=== PATIENT | male | born 1955 | race Caucasian/White ===

== ENCOUNTER 2021-07-24 16:47 | Inpatient (IN) | payer MEDICARE, OTHER ==
[~2021-07-24] VITALS: Ht 170.2 cm; Wt 79.8 kg
[2021-07-27 17:20] VITALS: BP 151/90
[2021-07-27] MEDS ORDERED: DEXTROSE 50%-WATER 25 GM/50 ML SYRINGE IVP PRN (17:30)
[2021-07-27] MEDS: INSULIN LISPRO 100 UNITS/ML SQ PRN ×2 (19:25→21:03)
[2021-07-27 19:36] LABS: GLUCOMETER DEV NAME(LOC) 2WR.2B; GLUCOSE,POINT OF CARE 364 MG/DL (70-110)
[2021-07-27] MEDS: INSULIN GLARGINE,HUM.REC.ANLOG 100 UNITS/ML SQ SCH (21:02)
[2021-07-27] MEDS: CARVEDILOL 25 MG TABLET PO SCH (21:04)
[2021-07-27] MEDS: DOCUSATE SODIUM 100 MG CAPSULE PO SCH (21:04)
[2021-07-27] MEDS: SENNA 187 MG TABLET PO SCH (21:04)
[2021-07-27] MEDS: ETHYL ALCOHOL 62% ANTISEPTIC NASAL SANITIZER 0.6 ML AMPUL NASAL SCH (21:04)
[2021-07-27] MEDS: ATORVASTATIN CALCIUM 40 MG TABLET PO SCH (21:04)
[2021-07-27 22:01] LABS: GLUCOMETER DEV NAME(LOC) 2WR.1C; GLUCOSE,POINT OF CARE 239 MG/DL (70-110)
[2021-07-27 22:32] VITALS: BP 128/63
[2021-07-28] VITALS: BP 132/57
[2021-07-28] MEDS: PANTOPRAZOLE SODIUM 40 MG DR TABLET PO SCH (06:00)
[2021-07-28 06:21] LABS: GLUCOMETER DEV NAME(LOC) 2WR.2B; GLUCOSE,POINT OF CARE 123 MG/DL (70-110)
[2021-07-28 07:38] LABS: BASOPHILS % (AUTO) 0.5 % (0.0-2.0); EOSINOPHILS % (AUTO) 5.1 % (1.0-6.0); HEMATOCRIT 26.8 % (41-53); HEMOGLOBIN 9.2 g/dL (13.5-17.5); LYMPHOCYTES # (AUTO) 1.6 K/uL (1.0-4.8); LYMPHOCYTES % (AUTO) 14.4 % (22.0-44.0); MEAN CORPUSCULAR HEMOGLOBIN 29.5 pg (26.0-34.0); MEAN CORPUSCULAR HGB CONC 34.2 G/dL (31.0-37.0); MEAN CORPUSCULAR VOLUME 86 fL (80-100); MONOCYTES # (AUTO) 0.8 K/uL (0.1-1.0); MONOCYTES % (AUTO) 7.5 % (2.0-9.0); NEUTROPHILS # (AUTO) 8.1 K/uL (1.8-7.7); NEUTROPHILS % (AUTO) 72.5 % (40.0-70.0); PLATELET COUNT (AUTO) 321 K/uL (150-450); RED BLOOD CELL COUNT(AUTO) 3.11 MIL/uL (4.50-5.90); RED CELL DISTRIBUTION WIDTH 14.8 % (11.5-14.5)
[2021-07-28 08:00] LABS: BILIRUBIN,TOTAL 0.2 mg/dL (0.1-1.0); CALCIUM, TOTAL 8.1 mg/dL (8.8-10.5); CREATININE 2.49 mg/dL (0.60-1.30); POTASSIUM 4.7 mmol/L (3.5-5.1); TOTAL PROTEIN, SERUM 5.3 g/dL (6.4-8.2)
[2021-07-28 08:01] VITALS: BP 130/68
[2021-07-28] MEDS: FERROUS SULFATE 325 MG EC TABLET PO SCH (08:10)
[2021-07-28] MEDS: ASPIRIN 81 MG CHEWABLE TABLET PO SCH (08:10)
[2021-07-28] MEDS: ETHYL ALCOHOL 62% ANTISEPTIC NASAL SANITIZER 0.6 ML AMPUL NASAL SCH ×2 (08:10→21:18)
[2021-07-28] MEDS: DOCUSATE SODIUM 100 MG CAPSULE PO SCH ×2 (08:11→21:18)
[2021-07-28] MEDS: CARVEDILOL 25 MG TABLET PO SCH ×2 (08:11→21:18)
[2021-07-28] MEDS: CLOPIDOGREL BISULFATE 75 MG TABLET PO SCH (08:11)
[2021-07-28] MEDS: AmLODIPine BESYLATE 10 MG TABLET PO SCH (08:11)
[2021-07-28] MEDS: INSULIN LISPRO 100 UNITS/ML SQ PRN ×3 (12:25→21:27)
[2021-07-28 12:31] LABS: GLUCOMETER DEV NAME(LOC) 2WR.2B; GLUCOSE,POINT OF CARE 266 MG/DL (70-110)
[2021-07-28 16:23] VITALS: BP 141/63
[2021-07-28 18:02] LABS: GLUCOMETER DEV NAME(LOC) 2WR.2B; GLUCOSE,POINT OF CARE 269 MG/DL (70-110)
[2021-07-28] MEDS: ATORVASTATIN CALCIUM 40 MG TABLET PO SCH (21:18)
[2021-07-28] MEDS: SENNA 187 MG TABLET PO SCH (21:19)
[2021-07-28] MEDS: INSULIN GLARGINE,HUM.REC.ANLOG 100 UNITS/ML SQ SCH (21:26)
[2021-07-28 22:41] LABS: GLUCOMETER DEV NAME(LOC) 2WR.1C; GLUCOSE,POINT OF CARE 267 MG/DL (70-110)
[2021-07-29 02:36] VITALS: BP 145/60
[2021-07-29] MEDS: PANTOPRAZOLE SODIUM 40 MG DR TABLET PO SCH (06:14)
[2021-07-29] MEDS: ETHYL ALCOHOL 62% ANTISEPTIC NASAL SANITIZER 0.6 ML AMPUL NASAL SCH ×2 (07:51→21:16)
[2021-07-29] MEDS: ASPIRIN 81 MG CHEWABLE TABLET PO SCH (07:51)
[2021-07-29] MEDS: FERROUS SULFATE 325 MG EC TABLET PO SCH (07:51)
[2021-07-29] MEDS: DOCUSATE SODIUM 100 MG CAPSULE PO SCH ×2 (07:52→21:16)
[2021-07-29] MEDS: CARVEDILOL 25 MG TABLET PO SCH ×2 (07:52→21:15)
[2021-07-29] MEDS: CLOPIDOGREL BISULFATE 75 MG TABLET PO SCH (07:52)
[2021-07-29] MEDS: AmLODIPine BESYLATE 10 MG TABLET PO SCH (07:52)
[2021-07-29] MEDS: INSULIN LISPRO 100 UNITS/ML SQ PRN ×4 (07:54→21:24)
[2021-07-29 08:01] VITALS: BP 131/64
[2021-07-29 13:12] LABS: GLUCOMETER DEV NAME(LOC) 2WR.1C; GLUCOSE,POINT OF CARE 197 MG/DL (70-110)
[2021-07-29 13:16] LABS: GLUCOMETER DEV NAME(LOC) 2WR.2B; GLUCOSE,POINT OF CARE 213 MG/DL (70-110)
[2021-07-29] MEDS ORDERED: PHENYLEPHRINE/SHK LV/MIN OIL/PET 57 GM OINTMENT TP PRN (14:30)
[2021-07-29 16:30] VITALS: BP 136/68
[2021-07-29 17:45] LABS: APPEARANCE,URINE CLEAR (CLEAR); BILIRUBIN,URINE NEGATIVE (NEGATIVE); GLUCOSE, URINE (UA) 70-100 mg/dL (NEGATIVE); KETONES,URINE NEGATIVE (NEGATIVE); LEUKOCYTE ESTERASE ,URINE NEGATIVE (NEGATIVE); NITRATE,URINE NEGATIVE (NEGATIVE); OCCULT BLOOD,URINE NEGATIVE (NEGATIVE); PROTEIN,URINE 300-600,SEE CONFIRM mg/dL (NEGATIVE); SPECIFIC GRAVITIY, URINE 1.016 (1.003-1.030); UROBILINOGEN,URINE <=1.0 mg/dL (<=1.0)
[2021-07-29 17:51] LABS: BACTERIA,URINE None Seen /HPF (None Seen); RBC,URINE None Seen /HPF (0-2); SULFOSALICYLIC ACID,URINE 3+ (Negative); WBC,URINE None Seen /HPF (0-5)
[2021-07-29 18:11] LABS: GLUCOMETER DEV NAME(LOC) 2WR.2B; GLUCOSE,POINT OF CARE 291 MG/DL (70-110)
[2021-07-29] MEDS ORDERED: INSULIN GLARGINE,HUM.REC.ANLOG 100 UNITS/ML SQ SCH (21:00)
[2021-07-29 21:05] VITALS: BP 133/72
[2021-07-29] MEDS: ATORVASTATIN CALCIUM 40 MG TABLET PO SCH (21:15)
[2021-07-29] MEDS: SENNA 187 MG TABLET PO SCH (21:15)
[2021-07-29 21:41] LABS: GLUCOMETER DEV NAME(LOC) 2WR.2B; GLUCOSE,POINT OF CARE 281 MG/DL (70-110)
[2021-07-30 00:30] VITALS: BP 147/64
[2021-07-30] MEDS: PANTOPRAZOLE SODIUM 40 MG DR TABLET PO SCH (05:56)
[2021-07-30 06:21] LABS: GLUCOMETER DEV NAME(LOC) 2WR.1C; GLUCOSE,POINT OF CARE 223 MG/DL (70-110)
[2021-07-30 07:30] LABS: BASOPHILS % (AUTO) 0.7 % (0.0-2.0); EOSINOPHILS % (AUTO) 7.6 % (1.0-6.0); HEMATOCRIT 25.9 % (41-53); HEMOGLOBIN 8.6 g/dL (13.5-17.5); LYMPHOCYTES # (AUTO) 1.4 K/uL (1.0-4.8); LYMPHOCYTES % (AUTO) 12.7 % (22.0-44.0); MEAN CORPUSCULAR HEMOGLOBIN 29.4 pg (26.0-34.0); MEAN CORPUSCULAR HGB CONC 33.4 G/dL (31.0-37.0); MEAN CORPUSCULAR VOLUME 88 fL (80-100); MONOCYTES # (AUTO) 0.9 K/uL (0.1-1.0); MONOCYTES % (AUTO) 8.3 % (2.0-9.0); NEUTROPHILS # (AUTO) 7.8 K/uL (1.8-7.7); NEUTROPHILS % (AUTO) 70.7 % (40.0-70.0); PLATELET COUNT (AUTO) 352 K/uL (150-450); RED BLOOD CELL COUNT(AUTO) 2.94 MIL/uL (4.50-5.90); RED CELL DISTRIBUTION WIDTH 14.9 % (11.5-14.5)
[2021-07-30 07:39] LABS: CALCIUM, TOTAL 8.2 mg/dL (8.8-10.5); CREATININE 2.45 mg/dL (0.60-1.30)
[2021-07-30] MEDS: ETHYL ALCOHOL 62% ANTISEPTIC NASAL SANITIZER 0.6 ML AMPUL NASAL SCH ×2 (08:18→21:23)
[2021-07-30] MEDS: ASPIRIN 81 MG CHEWABLE TABLET PO SCH (08:19)
[2021-07-30] MEDS: AmLODIPine BESYLATE 10 MG TABLET PO SCH (08:19)
[2021-07-30] MEDS: CARVEDILOL 25 MG TABLET PO SCH ×2 (08:19→21:23)
[2021-07-30] MEDS: CLOPIDOGREL BISULFATE 75 MG TABLET PO SCH (08:19)
[2021-07-30] MEDS: FERROUS SULFATE 325 MG EC TABLET PO SCH (08:19)
[2021-07-30] MEDS: DOCUSATE SODIUM 100 MG CAPSULE PO SCH ×2 (08:20→21:23)
[2021-07-30] MEDS: INSULIN LISPRO 100 UNITS/ML SQ PRN ×4 (08:23→21:25)
[2021-07-30 09:32] VITALS: BP 152/64
[2021-07-30] MEDS: CEPHALEXIN MONOHYDRATE 500 MG CAPSULE PO SCH ×3 (12:46→21:23)
[2021-07-30] MEDS: VITAMIN B COMP/VIT C/FOLIC ACID CAPSULE PO SCH (12:47)
[2021-07-30 13:02] LABS: GLUCOMETER DEV NAME(LOC) 2WR.1C; GLUCOSE,POINT OF CARE 320 MG/DL (70-110)
[2021-07-30 16:11] VITALS: BP 128/54
[2021-07-30 19:20] VITALS: BP 136/63
[2021-07-30] MEDS ORDERED: INSULIN GLARGINE,HUM.REC.ANLOG 100 UNITS/ML SQ SCH (21:00)
[2021-07-30] MEDS: ATORVASTATIN CALCIUM 40 MG TABLET PO SCH (21:23)
[2021-07-30] MEDS: SENNA 187 MG TABLET PO SCH (21:23)
[2021-07-30] MEDS: LACTOBAC ACID/BULG/BIFID/THERM TABLET PO SCH (21:23)
[2021-07-30 22:16] LABS: GLUCOMETER DEV NAME(LOC) 2WR.2B; GLUCOSE,POINT OF CARE 259 MG/DL (70-110)
[2021-07-31 01:13] VITALS: BP 131/66
[2021-07-31 05:11] LABS: GLUCOMETER DEV NAME(LOC) 2WR.1C; GLUCOSE,POINT OF CARE 209 MG/DL (70-110)
[2021-07-31] MEDS: PANTOPRAZOLE SODIUM 40 MG DR TABLET PO SCH (06:08)
[2021-07-31 06:47] LABS: CREATININE 2.68 mg/dL (0.60-1.30)
[2021-07-31 06:48] LABS: CALCIUM, TOTAL 8.1 mg/dL (8.8-10.5); PHOSPHORUS 3.9 mg/dL (2.5-4.9)
[2021-07-31 06:50] LABS: GLUCOMETER DEV NAME(LOC) 2WR.2B; GLUCOSE,POINT OF CARE 223 MG/DL (70-110)
[2021-07-31 06:51] LABS: CHOL/HDL RATIO 2.3 (4.2-7.3)
[2021-07-31 07:12] LABS: % IRON SATURATION 35.8 % (30-44)
[2021-07-31 08:05] VITALS: BP 148/67
[2021-07-31] MEDS: ASPIRIN 81 MG CHEWABLE TABLET PO SCH (08:06)
[2021-07-31] MEDS: LACTOBAC ACID/BULG/BIFID/THERM TABLET PO SCH ×2 (08:06→20:59)
[2021-07-31] MEDS: ETHYL ALCOHOL 62% ANTISEPTIC NASAL SANITIZER 0.6 ML AMPUL NASAL SCH ×2 (08:06→21:00)
[2021-07-31] MEDS: FERROUS SULFATE 325 MG EC TABLET PO SCH (08:06)
[2021-07-31] MEDS: DOCUSATE SODIUM 100 MG CAPSULE PO SCH ×2 (08:07→21:00)
[2021-07-31] MEDS: VITAMIN B COMP/VIT C/FOLIC ACID CAPSULE PO SCH (08:07)
[2021-07-31] MEDS: CARVEDILOL 25 MG TABLET PO SCH ×2 (08:07→20:59)
[2021-07-31] MEDS: CLOPIDOGREL BISULFATE 75 MG TABLET PO SCH (08:08)
[2021-07-31] MEDS: CEPHALEXIN MONOHYDRATE 500 MG CAPSULE PO SCH ×4 (08:08→20:59)
[2021-07-31] MEDS: AmLODIPine BESYLATE 10 MG TABLET PO SCH (08:08)
[2021-07-31] MEDS: INSULIN LISPRO 100 UNITS/ML SQ PRN ×4 (08:10→21:15)
[2021-07-31 16:05] VITALS: BP 133/65
[2021-07-31 17:51] LABS: GLUCOMETER DEV NAME(LOC) 2WR.2B; GLUCOSE,POINT OF CARE 299 MG/DL (70-110)
[2021-07-31 20:39] LABS: CREATININE,SERUM FOR CRCL 2.68 mg/dL (0.60-1.30)
[2021-07-31 20:42] LABS: CREATININE,URINE 50.8 mg/dL (30.0-125.0)
[2021-07-31 20:47] LABS: TPROTEIN TIMED,URINE 288 mg/dL
[2021-07-31 20:50] LABS: COLLECTION TIME,URINE 24 HR; TPROTEIN URINE, 24HRS COLL 3888 mg/24Hr (0-165)
[2021-07-31 20:57] VITALS: BP 136/65
[2021-07-31] MEDS: ATORVASTATIN CALCIUM 40 MG TABLET PO SCH (20:59)
[2021-07-31] MEDS ORDERED: INSULIN GLARGINE,HUM.REC.ANLOG 100 UNITS/ML SQ SCH (21:00)
[2021-07-31] MEDS: SENNA 187 MG TABLET PO SCH (21:00)
[2021-07-31 21:41] LABS: GLUCOMETER DEV NAME(LOC) 2WR.2B; GLUCOSE,POINT OF CARE 322 MG/DL (70-110)
[2021-08-01 01:00] VITALS: BP 144/64
[2021-08-01] MEDS ORDERED: B CO1CAP6 PO (03:22)
[2021-08-01] MEDS ORDERED: ACID1TAB13 PO (03:22)
[2021-08-01] MEDS ORDERED: CARV25 PO (03:22)
[2021-08-01] MEDS ORDERED: DOCU-385 PO (03:22)
[2021-08-01] MEDS ORDERED: FERR325T27 PO (03:22)
[2021-08-01] MEDS ORDERED: ASPI-1450 PO (03:22)
[2021-08-01] MEDS ORDERED: PANT-31 PO (03:22)
[2021-08-01] MEDS ORDERED: ATOR40TA28 PO (03:28)
[2021-08-01] MEDS ORDERED: INSU100V SQ (03:28)
[2021-08-01] MEDS ORDERED: CLOP75TA60 PO (03:28)
[2021-08-01] MEDS ORDERED: INSLAN SQ (03:28)
[2021-08-01 04:06] LABS: GLUCOMETER DEV NAME(LOC) 2WR.1C; GLUCOSE,POINT OF CARE 241 MG/DL (70-110)
[2021-08-01] MEDS: PANTOPRAZOLE SODIUM 40 MG DR TABLET PO SCH (06:15)
[2021-08-01 06:16] LABS: GLUCOMETER DEV NAME(LOC) 2WR.2B; GLUCOSE,POINT OF CARE 209 MG/DL (70-110)
[2021-08-01 07:43] LABS: CALCIUM, TOTAL 8.1 mg/dL (8.8-10.5); CREATININE 2.5 mg/dL (0.60-1.30); POTASSIUM 4.8 mmol/L (3.5-5.1)
[2021-08-01] MEDS: CEPHALEXIN MONOHYDRATE 500 MG CAPSULE PO SCH ×4 (07:50→20:41)
[2021-08-01] MEDS: VITAMIN B COMP/VIT C/FOLIC ACID CAPSULE PO SCH (07:50)
[2021-08-01] MEDS: FERROUS SULFATE 325 MG EC TABLET PO SCH (07:50)
[2021-08-01] MEDS: CLOPIDOGREL BISULFATE 75 MG TABLET PO SCH (07:50)
[2021-08-01] MEDS: AmLODIPine BESYLATE 10 MG TABLET PO SCH (07:50)
[2021-08-01] MEDS: ASPIRIN 81 MG CHEWABLE TABLET PO SCH (07:50)
[2021-08-01] MEDS: ETHYL ALCOHOL 62% ANTISEPTIC NASAL SANITIZER 0.6 ML AMPUL NASAL SCH ×2 (07:50→20:40)
[2021-08-01] MEDS: LACTOBAC ACID/BULG/BIFID/THERM TABLET PO SCH ×2 (07:50→20:40)
[2021-08-01] MEDS: CARVEDILOL 25 MG TABLET PO SCH ×2 (07:50→20:40)
[2021-08-01] MEDS: DOCUSATE SODIUM 100 MG CAPSULE PO SCH ×3 (07:51→20:40)
[2021-08-01] MEDS: INSULIN LISPRO 100 UNITS/ML SQ PRN ×4 (07:55→20:51)
[2021-08-01 08:00] VITALS: BP 143/65
[2021-08-01 11:51] LABS: GLUCOMETER DEV NAME(LOC) 2WR.2B; GLUCOSE,POINT OF CARE 218 MG/DL (70-110)
[2021-08-01 13:06] LABS: IGM (IMMUNOFIXATION) 96 mg/dL (20-172)
[2021-08-01 16:20] VITALS: BP 138/64
[2021-08-01 17:51] LABS: GLUCOMETER DEV NAME(LOC) 2WR.2B; GLUCOSE,POINT OF CARE 238 MG/DL (70-110)
[2021-08-01 20:38] VITALS: BP 134/64
[2021-08-01] MEDS: ATORVASTATIN CALCIUM 40 MG TABLET PO SCH (20:40)
[2021-08-01] MEDS: SENNA 187 MG TABLET PO SCH (20:40)
[2021-08-01] MEDS: INSULIN GLARGINE,HUM.REC.ANLOG 100 UNITS/ML SQ SCH (20:52)
[2021-08-01 21:26] LABS: GLUCOMETER DEV NAME(LOC) 2WR.2B; GLUCOSE,POINT OF CARE 275 MG/DL (70-110)
[2021-08-02] VITALS: BP 142/64
[2021-08-02] MEDS: PANTOPRAZOLE SODIUM 40 MG DR TABLET PO SCH (06:03)
[2021-08-02 06:36] LABS: GLUCOMETER DEV NAME(LOC) 2WR.1C; GLUCOSE,POINT OF CARE 166 MG/DL (70-110)
[2021-08-02 08:00] VITALS: BP 146/65
[2021-08-02] MEDS: ETHYL ALCOHOL 62% ANTISEPTIC NASAL SANITIZER 0.6 ML AMPUL NASAL SCH ×2 (08:08→20:32)
[2021-08-02] MEDS: VITAMIN B COMP/VIT C/FOLIC ACID CAPSULE PO SCH (08:08)
[2021-08-02] MEDS: CLOPIDOGREL BISULFATE 75 MG TABLET PO SCH (08:09)
[2021-08-02] MEDS: CEPHALEXIN MONOHYDRATE 500 MG CAPSULE PO SCH (08:09)
[2021-08-02] MEDS: LACTOBAC ACID/BULG/BIFID/THERM TABLET PO SCH ×2 (08:09→20:32)
[2021-08-02] MEDS: FERROUS SULFATE 325 MG EC TABLET PO SCH (08:09)
[2021-08-02] MEDS: AmLODIPine BESYLATE 10 MG TABLET PO SCH (08:09)
[2021-08-02] MEDS: CARVEDILOL 25 MG TABLET PO SCH ×2 (08:09→20:35)
[2021-08-02] MEDS: ASPIRIN 81 MG CHEWABLE TABLET PO SCH (08:09)
[2021-08-02] MEDS: INSULIN LISPRO 100 UNITS/ML SQ PRN ×4 (08:16→21:02)
[2021-08-02] MEDS: DOCUSATE SODIUM 100 MG CAPSULE PO SCH ×2 (08:27→21:00)
[2021-08-02 11:56] LABS: GLUCOMETER DEV NAME(LOC) 2WR.2B; GLUCOSE,POINT OF CARE 145 MG/DL (70-110)
[2021-08-02] MEDS: CIPROFLOXACIN HCL 500 MG TABLET PO SCH (12:57)
[2021-08-02 17:14] VITALS: BP 133/65
[2021-08-02 18:11] LABS: GLUCOMETER DEV NAME(LOC) 2WR.2B; GLUCOSE,POINT OF CARE 251 MG/DL (70-110)
[2021-08-02 20:30] VITALS: BP 129/48
[2021-08-02] MEDS: ATORVASTATIN CALCIUM 40 MG TABLET PO SCH (20:34)
[2021-08-02] MEDS: SENNA 187 MG TABLET PO SCH (21:00)
[2021-08-02] MEDS: INSULIN GLARGINE,HUM.REC.ANLOG 100 UNITS/ML SQ SCH (21:02)
[2021-08-02 21:21] LABS: GLUCOMETER DEV NAME(LOC) 2WR.2B; GLUCOSE,POINT OF CARE 273 MG/DL (70-110)
[2021-08-03 00:30] VITALS: BP 136/50
[2021-08-03] MEDS: PANTOPRAZOLE SODIUM 40 MG DR TABLET PO SCH (05:46)
[2021-08-03 06:16] LABS: GLUCOMETER DEV NAME(LOC) 2WR.1C; GLUCOSE,POINT OF CARE 205 MG/DL (70-110)
[2021-08-03] MEDS: NYSTATIN 500,000 UNITS/5 ML SUSPENSION UDCUP PO SCH ×2 (08:51→16:18)
[2021-08-03] MEDS: CARVEDILOL 25 MG TABLET PO SCH ×2 (08:52→20:33)
[2021-08-03] MEDS: AmLODIPine BESYLATE 10 MG TABLET PO SCH (08:52)
[2021-08-03] MEDS: CIPROFLOXACIN HCL 500 MG TABLET PO SCH (08:52)
[2021-08-03] MEDS: FERROUS SULFATE 325 MG EC TABLET PO SCH (08:52)
[2021-08-03] MEDS: VITAMIN B COMP/VIT C/FOLIC ACID CAPSULE PO SCH (08:52)
[2021-08-03] MEDS: CLOPIDOGREL BISULFATE 75 MG TABLET PO SCH (08:52)
[2021-08-03] MEDS: LACTOBAC ACID/BULG/BIFID/THERM TABLET PO SCH ×2 (08:53→20:33)
[2021-08-03] MEDS: ASPIRIN 81 MG CHEWABLE TABLET PO SCH (08:53)
[2021-08-03] MEDS: ETHYL ALCOHOL 62% ANTISEPTIC NASAL SANITIZER 0.6 ML AMPUL NASAL SCH ×2 (08:53→20:33)
[2021-08-03] MEDS: DOCUSATE SODIUM 100 MG CAPSULE PO SCH ×2 (08:53→20:33)
[2021-08-03] MEDS: INSULIN LISPRO 100 UNITS/ML SQ PRN ×4 (09:04→20:49)
[2021-08-03 09:10] VITALS: BP 152/60
[2021-08-03 12:46] LABS: GLUCOMETER DEV NAME(LOC) 2WR.2B; GLUCOSE,POINT OF CARE 148 MG/DL (70-110)
[2021-08-03 16:06] LABS: ALBUMIN URINE (ELP) 45.8 %
[2021-08-03 16:35] VITALS: BP 131/64
[2021-08-03 17:26] LABS: GLUCOMETER DEV NAME(LOC) 2WR.2B; GLUCOSE,POINT OF CARE 257 MG/DL (70-110)
[2021-08-03 20:30] VITALS: BP 133/63
[2021-08-03] MEDS: SENNA 187 MG TABLET PO SCH (20:33)
[2021-08-03] MEDS: ATORVASTATIN CALCIUM 40 MG TABLET PO SCH (20:33)
[2021-08-03] MEDS ORDERED: INSULIN GLARGINE,HUM.REC.ANLOG 100 UNITS/ML SQ SCH (21:00)
[2021-08-03 21:31] LABS: GLUCOMETER DEV NAME(LOC) 2WR.2B; GLUCOSE,POINT OF CARE 313 MG/DL (70-110)
[2021-08-04] VITALS: BP 143/57
[2021-08-04] MEDS: NYSTATIN 500,000 UNITS/5 ML SUSPENSION UDCUP PO SCH ×3 (00:08→16:18)
[2021-08-04] MEDS: PANTOPRAZOLE SODIUM 40 MG DR TABLET PO SCH (05:26)
[2021-08-04 06:11] LABS: GLUCOMETER DEV NAME(LOC) 2WR.1C; GLUCOSE,POINT OF CARE 292 MG/DL (70-110)
[2021-08-04] MEDS: ASPIRIN 81 MG CHEWABLE TABLET PO SCH (07:49)
[2021-08-04] MEDS: CIPROFLOXACIN HCL 500 MG TABLET PO SCH (07:49)
[2021-08-04] MEDS: ETHYL ALCOHOL 62% ANTISEPTIC NASAL SANITIZER 0.6 ML AMPUL NASAL SCH ×2 (07:50→21:14)
[2021-08-04] MEDS: CARVEDILOL 25 MG TABLET PO SCH ×2 (07:50→21:14)
[2021-08-04] MEDS: LACTOBAC ACID/BULG/BIFID/THERM TABLET PO SCH ×2 (07:50→21:14)
[2021-08-04] MEDS: VITAMIN B COMP/VIT C/FOLIC ACID CAPSULE PO SCH (07:50)
[2021-08-04] MEDS: FERROUS SULFATE 325 MG EC TABLET PO SCH (07:50)
[2021-08-04] MEDS: CLOPIDOGREL BISULFATE 75 MG TABLET PO SCH (07:50)
[2021-08-04] MEDS: AmLODIPine BESYLATE 10 MG TABLET PO SCH (07:50)
[2021-08-04] MEDS: INSULIN LISPRO 100 UNITS/ML SQ PRN ×4 (07:52→21:19)
[2021-08-04] MEDS: DOCUSATE SODIUM 100 MG CAPSULE PO SCH ×2 (07:52→21:00)
[2021-08-04 08:00] VITALS: BP 130/60
[2021-08-04 12:36] LABS: GLUCOMETER DEV NAME(LOC) 2WR.1C; GLUCOSE,POINT OF CARE 190 MG/DL (70-110)
[2021-08-04] MEDS ORDERED: BACLOFEN 10 MG TABLET PO SCH (16:00)
[2021-08-04] MEDS: BACLOFEN 10 MG TABLET PO SCH ×2 (16:18→21:14)
[2021-08-04] MEDS: MetroNIDAZOLE 500 MG TABLET PO SCH ×2 (16:18→21:14)
[2021-08-04 16:20] VITALS: BP 146/84
[2021-08-04 18:31] LABS: GLUCOMETER DEV NAME(LOC) 2WR.2B; GLUCOSE,POINT OF CARE 238 MG/DL (70-110)
[2021-08-04] MEDS: SENNA 187 MG TABLET PO SCH (21:00)
[2021-08-04 21:02] VITALS: BP 143/62
[2021-08-04] MEDS: ATORVASTATIN CALCIUM 40 MG TABLET PO SCH (21:14)
[2021-08-04] MEDS: INSULIN GLARGINE,HUM.REC.ANLOG 100 UNITS/ML SQ SCH (21:18)
[2021-08-04 22:07] LABS: GLUCOMETER DEV NAME(LOC) 2WR.2B; GLUCOSE,POINT OF CARE 337 MG/DL (70-110)
[2021-08-05] MEDS: NYSTATIN 500,000 UNITS/5 ML SUSPENSION UDCUP PO SCH ×4 (00:26→23:34)
[2021-08-05 00:30] VITALS: BP 146/58
[2021-08-05] MEDS: PANTOPRAZOLE SODIUM 40 MG DR TABLET PO SCH (06:15)
[2021-08-05 06:31] LABS: GLUCOMETER DEV NAME(LOC) 2WR.1C; GLUCOSE,POINT OF CARE 175 MG/DL (70-110)
[2021-08-05 07:19] LABS: BASOPHILS % (AUTO) 1.1 % (0.0-2.0); EOSINOPHILS % (AUTO) 5.7 % (1.0-6.0); HEMATOCRIT 21.2 % (41-53); HEMOGLOBIN 7.2 g/dL (13.5-17.5); LYMPHOCYTES # (AUTO) 1.7 K/uL (1.0-4.8); LYMPHOCYTES % (AUTO) 18.5 % (22.0-44.0); MEAN CORPUSCULAR HEMOGLOBIN 29.7 pg (26.0-34.0); MEAN CORPUSCULAR HGB CONC 34.1 G/dL (31.0-37.0); MEAN CORPUSCULAR VOLUME 87 fL (80-100); MONOCYTES # (AUTO) 0.8 K/uL (0.1-1.0); MONOCYTES % (AUTO) 8.6 % (2.0-9.0); NEUTROPHILS # (AUTO) 6.1 K/uL (1.8-7.7); NEUTROPHILS % (AUTO) 66.1 % (40.0-70.0); PLATELET COUNT (AUTO) 347 K/uL (150-450); RED BLOOD CELL COUNT(AUTO) 2.44 MIL/uL (4.50-5.90); RED CELL DISTRIBUTION WIDTH 15.2 % (11.5-14.5)
[2021-08-05 07:35] LABS: ALBUMIN 2.1 g/dL (3.4-5.0); BILIRUBIN,TOTAL 0.1 mg/dL (0.1-1.0); CALCIUM, TOTAL 7.9 mg/dL (8.8-10.5); CREATININE 2.8 mg/dL (0.60-1.30); PHOSPHORUS 5.3 mg/dL (2.5-4.9); POTASSIUM 4.6 mmol/L (3.5-5.1); TOTAL PROTEIN, SERUM 5.2 g/dL (6.4-8.2)
[2021-08-05 08:00] VITALS: BP 134/54
[2021-08-05] MEDS: VITAMIN B COMP/VIT C/FOLIC ACID CAPSULE PO SCH (08:14)
[2021-08-05] MEDS: AmLODIPine BESYLATE 10 MG TABLET PO SCH (08:14)
[2021-08-05] MEDS: LACTOBAC ACID/BULG/BIFID/THERM TABLET PO SCH ×2 (08:14→21:14)
[2021-08-05] MEDS: CIPROFLOXACIN HCL 500 MG TABLET PO SCH (08:14)
[2021-08-05] MEDS: MetroNIDAZOLE 500 MG TABLET PO SCH ×3 (08:14→21:13)
[2021-08-05] MEDS: ETHYL ALCOHOL 62% ANTISEPTIC NASAL SANITIZER 0.6 ML AMPUL NASAL SCH ×2 (08:14→21:23)
[2021-08-05] MEDS: FERROUS SULFATE 325 MG EC TABLET PO SCH (08:14)
[2021-08-05] MEDS: ASPIRIN 81 MG CHEWABLE TABLET PO SCH (08:15)
[2021-08-05] MEDS: CLOPIDOGREL BISULFATE 75 MG TABLET PO SCH (08:15)
[2021-08-05] MEDS: CARVEDILOL 25 MG TABLET PO SCH ×2 (08:15→21:13)
[2021-08-05] MEDS: BACLOFEN 10 MG TABLET PO SCH ×2 (08:16→21:14)
[2021-08-05] MEDS: INSULIN LISPRO 100 UNITS/ML SQ PRN ×4 (08:18→21:20)
[2021-08-05] MEDS: DOCUSATE SODIUM 100 MG CAPSULE PO SCH ×2 (08:24→21:00)
[2021-08-05] MEDS ORDERED: EPOETIN ALFA 10,000 UNITS/ML 2 ML VIAL SQ SCH (09:00)
[2021-08-05] MEDS: EPOETIN ALFA 10,000 UNITS/ML VIAL SQ SCH (10:33)
[2021-08-05 12:26] LABS: GLUCOMETER DEV NAME(LOC) 2WR.1C; GLUCOSE,POINT OF CARE 183 MG/DL (70-110)
[2021-08-05 16:01] VITALS: BP 136/66
[2021-08-05 19:40] LABS: GLUCOMETER DEV NAME(LOC) 2WR.1C; GLUCOSE,POINT OF CARE 204 MG/DL (70-110)
[2021-08-05] MEDS: SENNA 187 MG TABLET PO SCH (21:00)
[2021-08-05] MEDS: ATORVASTATIN CALCIUM 40 MG TABLET PO SCH (21:14)
[2021-08-05] MEDS: INSULIN GLARGINE,HUM.REC.ANLOG 100 UNITS/ML SQ SCH (21:19)
[2021-08-05 22:31] LABS: GLUCOMETER DEV NAME(LOC) 2WR.2B; GLUCOSE,POINT OF CARE 273 MG/DL (70-110)
[2021-08-06] VITALS: BP 133/66
[2021-08-06] MEDS: PANTOPRAZOLE SODIUM 40 MG DR TABLET PO SCH (05:33)
[2021-08-06 06:11] LABS: GLUCOMETER DEV NAME(LOC) 2WR.1C; GLUCOSE,POINT OF CARE 147 MG/DL (70-110)
[2021-08-06] MEDS: ETHYL ALCOHOL 62% ANTISEPTIC NASAL SANITIZER 0.6 ML AMPUL NASAL SCH ×2 (08:13→21:25)
[2021-08-06] MEDS: NYSTATIN 500,000 UNITS/5 ML SUSPENSION UDCUP PO SCH ×2 (08:13→16:01)
[2021-08-06] MEDS: LACTOBAC ACID/BULG/BIFID/THERM TABLET PO SCH ×2 (08:14→21:25)
[2021-08-06] MEDS: BACLOFEN 10 MG TABLET PO SCH ×2 (08:14→21:26)
[2021-08-06] MEDS: VITAMIN B COMP/VIT C/FOLIC ACID CAPSULE PO SCH (08:14)
[2021-08-06] MEDS: FERROUS SULFATE 325 MG EC TABLET PO SCH (08:14)
[2021-08-06] MEDS: ASPIRIN 81 MG CHEWABLE TABLET PO SCH (08:14)
[2021-08-06] MEDS: CIPROFLOXACIN HCL 500 MG TABLET PO SCH (08:14)
[2021-08-06] MEDS: CLOPIDOGREL BISULFATE 75 MG TABLET PO SCH (08:15)
[2021-08-06] MEDS: AmLODIPine BESYLATE 10 MG TABLET PO SCH (08:15)
[2021-08-06] MEDS: MetroNIDAZOLE 500 MG TABLET PO SCH ×3 (08:15→21:26)
[2021-08-06] MEDS: CARVEDILOL 25 MG TABLET PO SCH ×2 (08:15→21:25)
[2021-08-06] MEDS: DOCUSATE SODIUM 100 MG CAPSULE PO SCH ×2 (08:15→21:25)
[2021-08-06 08:43] VITALS: BP 121/60
[2021-08-06] MEDS: INSULIN LISPRO 100 UNITS/ML SQ PRN ×3 (09:31→21:31)
[2021-08-06 14:06] LABS: GLUCOMETER DEV NAME(LOC) 2WR.2B; GLUCOSE,POINT OF CARE 305 MG/DL (70-110)
[2021-08-06 16:05] VITALS: BP_SYST 113; BP_SYST 121; BP_DIAS 60; BP_DIAS 75
[2021-08-06 19:06] LABS: GLUCOMETER DEV NAME(LOC) 2WR.2B; GLUCOSE,POINT OF CARE 123 MG/DL (70-110)
[2021-08-06] MEDS: MELATONIN 3 MG TABLET PO PRN (21:25)
[2021-08-06] MEDS: SENNA 187 MG TABLET PO SCH (21:25)
[2021-08-06] MEDS: ATORVASTATIN CALCIUM 40 MG TABLET PO SCH (21:25)
[2021-08-06] MEDS: INSULIN GLARGINE,HUM.REC.ANLOG 100 UNITS/ML SQ SCH (21:30)
[2021-08-06 21:37] VITALS: BP 144/62
[2021-08-06 22:52] LABS: GLUCOMETER DEV NAME(LOC) 2WR.2B; GLUCOSE,POINT OF CARE 196 MG/DL (70-110)
[2021-08-07] VITALS: BP 137/63
[2021-08-07] MEDS: NYSTATIN 500,000 UNITS/5 ML SUSPENSION UDCUP PO SCH ×3 (00:42→16:34)
[2021-08-07] MEDS: PANTOPRAZOLE SODIUM 40 MG DR TABLET PO SCH (05:50)
[2021-08-07 06:06] LABS: GLUCOMETER DEV NAME(LOC) 2WR.2B; GLUCOSE,POINT OF CARE 189 MG/DL (70-110)
[2021-08-07 08:01] VITALS: BP 121/56
[2021-08-07] MEDS: LACTOBAC ACID/BULG/BIFID/THERM TABLET PO SCH ×2 (08:14→21:32)
[2021-08-07] MEDS: FERROUS SULFATE 325 MG EC TABLET PO SCH (08:14)
[2021-08-07] MEDS: ASPIRIN 81 MG CHEWABLE TABLET PO SCH (08:14)
[2021-08-07] MEDS: ETHYL ALCOHOL 62% ANTISEPTIC NASAL SANITIZER 0.6 ML AMPUL NASAL SCH ×2 (08:14→21:27)
[2021-08-07] MEDS: MetroNIDAZOLE 500 MG TABLET PO SCH ×3 (08:15→21:29)
[2021-08-07] MEDS: DOCUSATE SODIUM 100 MG CAPSULE PO SCH ×2 (08:15→21:30)
[2021-08-07] MEDS: CIPROFLOXACIN HCL 500 MG TABLET PO SCH (08:15)
[2021-08-07] MEDS: VITAMIN B COMP/VIT C/FOLIC ACID CAPSULE PO SCH (08:15)
[2021-08-07] MEDS: CARVEDILOL 25 MG TABLET PO SCH ×2 (08:17→21:31)
[2021-08-07] MEDS: BACLOFEN 10 MG TABLET PO SCH ×2 (08:18→21:29)
[2021-08-07] MEDS: CLOPIDOGREL BISULFATE 75 MG TABLET PO SCH (08:18)
[2021-08-07] MEDS: AmLODIPine BESYLATE 10 MG TABLET PO SCH (08:18)
[2021-08-07] MEDS: INSULIN LISPRO 100 UNITS/ML SQ PRN ×3 (08:22→21:42)
[2021-08-07 08:51] LABS: BASOPHILS % (AUTO) 1.1 % (0.0-2.0); EOSINOPHILS % (AUTO) 5.4 % (1.0-6.0); LYMPHOCYTES # (AUTO) 1.8 K/uL (1.0-4.8); LYMPHOCYTES % (AUTO) 18.9 % (22.0-44.0); MEAN CORPUSCULAR HEMOGLOBIN 29.9 pg (26.0-34.0); MEAN CORPUSCULAR HGB CONC 34.2 G/dL (31.0-37.0); MEAN CORPUSCULAR VOLUME 88 fL (80-100); MONOCYTES # (AUTO) 0.8 K/uL (0.1-1.0); MONOCYTES % (AUTO) 8.3 % (2.0-9.0); NEUTROPHILS # (AUTO) 6.3 K/uL (1.8-7.7); NEUTROPHILS % (AUTO) 66.3 % (40.0-70.0); PLATELET COUNT (AUTO) 381 K/uL (150-450); RED BLOOD CELL COUNT(AUTO) 2.33 MIL/uL (4.50-5.90); RED CELL DISTRIBUTION WIDTH 15.4 % (11.5-14.5)
[2021-08-07 08:55] LABS: HEMATOCRIT 20.4 % (41-53)
[2021-08-07 08:58] LABS: ALBUMIN 2.1 g/dL (3.4-5.0); BILIRUBIN,TOTAL 0.1 mg/dL (0.1-1.0); CALCIUM, TOTAL 8.2 mg/dL (8.8-10.5); CREATININE 2.92 mg/dL (0.60-1.30); MAGNESIUM 2.2 mg/dL (1.80-2.40); PHOSPHORUS 5.6 mg/dL (2.5-4.9); POTASSIUM 4.5 mmol/L (3.5-5.1); TOTAL PROTEIN, SERUM 5.1 g/dL (6.4-8.2)
[2021-08-07] MEDS: EPOETIN ALFA 10,000 UNITS/ML VIAL SQ SCH (09:00)
[2021-08-07 14:31] LABS: GLUCOMETER DEV NAME(LOC) 2WR.2B; GLUCOSE,POINT OF CARE 128 MG/DL (70-110)
[2021-08-07 16:34] VITALS: BP 112/49
[2021-08-07] MEDS: ACETAMINOPHEN 325 MG TABLET PO PRN (16:34)
[2021-08-07 17:56] LABS: GLUCOMETER DEV NAME(LOC) 2WR.1C; GLUCOSE,POINT OF CARE 222 MG/DL (70-110)
[2021-08-07 21:25] VITALS: BP 126/63
[2021-08-07] MEDS: SENNA 187 MG TABLET PO SCH (21:30)
[2021-08-07] MEDS: ATORVASTATIN CALCIUM 40 MG TABLET PO SCH (21:30)
[2021-08-07] MEDS: INSULIN GLARGINE,HUM.REC.ANLOG 100 UNITS/ML SQ SCH (21:42)
[2021-08-07 23:51] LABS: GLUCOMETER DEV NAME(LOC) 2WR.2B; GLUCOSE,POINT OF CARE 268 MG/DL (70-110)
[2021-08-08] VITALS: BP 118/59
[2021-08-08] MEDS: NYSTATIN 500,000 UNITS/5 ML SUSPENSION UDCUP PO SCH ×4 (00:48→23:49)
[2021-08-08] MEDS: PANTOPRAZOLE SODIUM 40 MG DR TABLET PO SCH (05:57)
[2021-08-08 06:01] LABS: GLUCOMETER DEV NAME(LOC) 2WR.2B; GLUCOSE,POINT OF CARE 100 MG/DL (70-110)
[2021-08-08 06:52] LABS: BASOPHILS % (AUTO) 1.5 % (0.0-2.0); EOSINOPHILS % (AUTO) 5.2 % (1.0-6.0); LYMPHOCYTES % (AUTO) 20.8 % (22.0-44.0); MEAN CORPUSCULAR HEMOGLOBIN 30.3 pg (26.0-34.0); MEAN CORPUSCULAR HGB CONC 34.3 G/dL (31.0-37.0); MEAN CORPUSCULAR VOLUME 88 fL (80-100); MONOCYTES % (AUTO) 10.6 % (2.0-9.0); NEUTROPHILS # (AUTO) 5.9 K/uL (1.8-7.7); NEUTROPHILS % (AUTO) 61.9 % (40.0-70.0); PLATELET COUNT (AUTO) 376 K/uL (150-450); RED BLOOD CELL COUNT(AUTO) 2.29 MIL/uL (4.50-5.90); RED CELL DISTRIBUTION WIDTH 15.8 % (11.5-14.5)
[2021-08-08 06:59] LABS: HEMOGLOBIN 6.9 g/dL (13.5-17.5)
[2021-08-08 07:00] LABS: HEMATOCRIT 20.2 % (41-53)
[2021-08-08] MEDS: VITAMIN B COMP/VIT C/FOLIC ACID CAPSULE PO SCH (07:42)
[2021-08-08] MEDS: DOCUSATE SODIUM 100 MG CAPSULE PO SCH ×2 (07:42→21:14)
[2021-08-08] MEDS: CIPROFLOXACIN HCL 500 MG TABLET PO SCH (07:42)
[2021-08-08] MEDS: ASPIRIN 81 MG CHEWABLE TABLET PO SCH (07:42)
[2021-08-08] MEDS: FERROUS SULFATE 325 MG EC TABLET PO SCH (07:42)
[2021-08-08] MEDS: LACTOBAC ACID/BULG/BIFID/THERM TABLET PO SCH ×2 (07:42→21:14)
[2021-08-08] MEDS: AmLODIPine BESYLATE 10 MG TABLET PO SCH (07:43)
[2021-08-08] MEDS: CARVEDILOL 25 MG TABLET PO SCH ×2 (07:45→21:15)
[2021-08-08] MEDS: CLOPIDOGREL BISULFATE 75 MG TABLET PO SCH (07:45)
[2021-08-08] MEDS: MetroNIDAZOLE 500 MG TABLET PO SCH (07:46)
[2021-08-08] MEDS: ETHYL ALCOHOL 62% ANTISEPTIC NASAL SANITIZER 0.6 ML AMPUL NASAL SCH ×3 (07:51→21:11)
[2021-08-08] MEDS: BACLOFEN 10 MG TABLET PO SCH ×2 (07:52→21:14)
[2021-08-08 08:00] VITALS: BP 133/50
[2021-08-08 08:25] LABS: BASOPHILS % (AUTO) 2.1 % (0.0-2.0); EOSINOPHILS % (AUTO) 4.6 % (1.0-6.0); HEMATOCRIT 21.1 % (41-53); HEMOGLOBIN 7.3 g/dL (13.5-17.5); LYMPHOCYTES # (AUTO) 1.8 K/uL (1.0-4.8); LYMPHOCYTES % (AUTO) 20.3 % (22.0-44.0); MEAN CORPUSCULAR HEMOGLOBIN 30.4 pg (26.0-34.0); MEAN CORPUSCULAR HGB CONC 34.7 G/dL (31.0-37.0); MEAN CORPUSCULAR VOLUME 88 fL (80-100); MONOCYTES # (AUTO) 0.8 K/uL (0.1-1.0); MONOCYTES % (AUTO) 8.7 % (2.0-9.0); NEUTROPHILS # (AUTO) 5.8 K/uL (1.8-7.7); NEUTROPHILS % (AUTO) 64.3 % (40.0-70.0); PLATELET COUNT (AUTO) 392 K/uL (150-450)
[2021-08-08] MEDS ORDERED: SODIUM CHLORIDE 0.9% 500 ML IV ONE (09:16)
[2021-08-08] MEDS ORDERED: SOD FERRIC GLUC COMPLX/SUCROSE 125 MG in SODIUM CHLORIDE 0.9% 100 ML IV SCH (10:00)
[2021-08-08] MEDS: INSULIN LISPRO 100 UNITS/ML SQ PRN ×3 (12:35→21:03)
[2021-08-08] MEDS: SOD FERRIC GLUC COMPLX/SUCROSE 125 MG in SODIUM CHLORIDE 0.9% 100 ML IV SCH (13:06)
[2021-08-08 13:26] LABS: GLUCOMETER DEV NAME(LOC) 2WR.2B; GLUCOSE,POINT OF CARE 191 MG/DL (70-110)
[2021-08-08 16:03] VITALS: BP 147/54
[2021-08-08] MEDS: ACETAMINOPHEN 325 MG TABLET PO PRN (16:31)
[2021-08-08 18:06] LABS: GLUCOMETER DEV NAME(LOC) 2WR.2B; GLUCOSE,POINT OF CARE 373 MG/DL (70-110)
[2021-08-08] MEDS: SENNA 187 MG TABLET PO SCH (21:00)
[2021-08-08] MEDS: INSULIN GLARGINE,HUM.REC.ANLOG 100 UNITS/ML SQ SCH (21:01)
[2021-08-08 21:12] VITALS: BP 145/83
[2021-08-08] MEDS: ATORVASTATIN CALCIUM 40 MG TABLET PO SCH (21:14)
[2021-08-08 22:01] LABS: GLUCOMETER DEV NAME(LOC) 2WR.1C; GLUCOSE,POINT OF CARE 349 MG/DL (70-110)
[2021-08-08] MEDS: 0.9% SODIUM CHLORIDE 10 ML SYRINGE IVP SCH (23:50)
[2021-08-09 00:27] VITALS: BP 133/71
[2021-08-09] MEDS: PANTOPRAZOLE SODIUM 40 MG DR TABLET PO SCH (05:55)
[2021-08-09 06:17] LABS: GLUCOMETER DEV NAME(LOC) 2WR.2B; GLUCOSE,POINT OF CARE 333 MG/DL (70-110)
[2021-08-09 08:27] LABS: BASOPHILS % (AUTO) 1.4 % (0.0-2.0); EOSINOPHILS % (AUTO) 2.5 % (1.0-6.0); HEMATOCRIT 21.2 % (41-53); HEMOGLOBIN 7.2 g/dL (13.5-17.5); LYMPHOCYTES # (AUTO) 1.7 K/uL (1.0-4.8); LYMPHOCYTES % (AUTO) 15.5 % (22.0-44.0); MEAN CORPUSCULAR HEMOGLOBIN 29.8 pg (26.0-34.0); MEAN CORPUSCULAR HGB CONC 33.8 G/dL (31.0-37.0); MEAN CORPUSCULAR VOLUME 88 fL (80-100); MONOCYTES # (AUTO) 1.1 K/uL (0.1-1.0); MONOCYTES % (AUTO) 9.8 % (2.0-9.0); NEUTROPHILS # (AUTO) 7.6 K/uL (1.8-7.7); NEUTROPHILS % (AUTO) 70.8 % (40.0-70.0); PLATELET COUNT (AUTO) 395 K/uL (150-450); RED CELL DISTRIBUTION WIDTH 15.9 % (11.5-14.5)
[2021-08-09] MEDS: DOCUSATE SODIUM 100 MG CAPSULE PO SCH ×2 (09:00→21:24)
[2021-08-09] MEDS: ETHYL ALCOHOL 62% ANTISEPTIC NASAL SANITIZER 0.6 ML AMPUL NASAL SCH ×2 (09:06→21:21)
[2021-08-09] MEDS: NYSTATIN 500,000 UNITS/5 ML SUSPENSION UDCUP PO SCH ×3 (09:06→23:31)
[2021-08-09] MEDS: ASPIRIN 81 MG CHEWABLE TABLET PO SCH (09:07)
[2021-08-09] MEDS: BACLOFEN 10 MG TABLET PO SCH ×2 (09:07→21:18)
[2021-08-09] MEDS: VITAMIN B COMP/VIT C/FOLIC ACID CAPSULE PO SCH (09:07)
[2021-08-09] MEDS: AmLODIPine BESYLATE 5 MG TABLET PO SCH (09:08)
[2021-08-09] MEDS: LACTOBAC ACID/BULG/BIFID/THERM TABLET PO SCH ×2 (09:08→21:18)
[2021-08-09] MEDS: CLOPIDOGREL BISULFATE 75 MG TABLET PO SCH (09:08)
[2021-08-09] MEDS: CARVEDILOL 25 MG TABLET PO SCH ×2 (09:08→21:18)
[2021-08-09] MEDS: 0.9% SODIUM CHLORIDE 10 ML SYRINGE IVP SCH ×3 (09:09→23:31)
[2021-08-09] MEDS: INSULIN LISPRO 100 UNITS/ML SQ PRN ×4 (09:15→21:20)
[2021-08-09 10:12] VITALS: BP 135/57
[2021-08-09 12:51] LABS: GLUCOMETER DEV NAME(LOC) 2WR.1C; GLUCOSE,POINT OF CARE 316 MG/DL (70-110)
[2021-08-09] MEDS: SOD FERRIC GLUC COMPLX/SUCROSE 125 MG in SODIUM CHLORIDE 0.9% 100 ML IV SCH (13:10)
[2021-08-09 16:05] VITALS: BP 138/58
[2021-08-09 21:15] VITALS: BP 112/53
[2021-08-09] MEDS: ATORVASTATIN CALCIUM 40 MG TABLET PO SCH (21:18)
[2021-08-09] MEDS: INSULIN GLARGINE,HUM.REC.ANLOG 100 UNITS/ML SQ SCH (21:19)
[2021-08-09] MEDS: SENNA 187 MG TABLET PO SCH (21:24)
[2021-08-09 21:26] LABS: GLUCOMETER DEV NAME(LOC) 2WR.1C; GLUCOSE,POINT OF CARE 379 MG/DL (70-110)
[2021-08-09 21:46] LABS: GLUCOMETER DEV NAME(LOC) 2WR.2B; GLUCOSE,POINT OF CARE 272 MG/DL (70-110)
[2021-08-10] VITALS: BP 129/56
[2021-08-10] MEDS ORDERED: BACL10TA PO (03:41)
[2021-08-10] MEDS ORDERED: AMLO-257 PO (03:41)
[2021-08-10] MEDS: PANTOPRAZOLE SODIUM 40 MG DR TABLET PO SCH (06:04)
[2021-08-10 06:21] LABS: GLUCOMETER DEV NAME(LOC) 2WR.1C; GLUCOSE,POINT OF CARE 140 MG/DL (70-110)
[2021-08-10 07:28] LABS: CREATININE 2.67 mg/dL (0.60-1.30); PHOSPHORUS 4.1 mg/dL (2.5-4.9); POTASSIUM 4.5 mmol/L (3.5-5.1)
[2021-08-10 08:00] VITALS: BP 133/58
[2021-08-10] MEDS: NYSTATIN 500,000 UNITS/5 ML SUSPENSION UDCUP PO SCH ×2 (08:32→16:24)
[2021-08-10] MEDS: 0.9% SODIUM CHLORIDE 10 ML SYRINGE IVP SCH ×2 (08:32→16:24)
[2021-08-10] MEDS: CARVEDILOL 25 MG TABLET PO SCH ×2 (08:33→21:01)
[2021-08-10] MEDS: VITAMIN B COMP/VIT C/FOLIC ACID CAPSULE PO SCH (08:33)
[2021-08-10] MEDS: AmLODIPine BESYLATE 5 MG TABLET PO SCH (08:33)
[2021-08-10] MEDS: ASPIRIN 81 MG CHEWABLE TABLET PO SCH (08:33)
[2021-08-10] MEDS: LACTOBAC ACID/BULG/BIFID/THERM TABLET PO SCH ×2 (08:33→21:02)
[2021-08-10] MEDS: CLOPIDOGREL BISULFATE 75 MG TABLET PO SCH (08:33)
[2021-08-10] MEDS: ETHYL ALCOHOL 62% ANTISEPTIC NASAL SANITIZER 0.6 ML AMPUL NASAL SCH ×2 (08:34→21:01)
[2021-08-10] MEDS: BACLOFEN 10 MG TABLET PO SCH (08:34)
[2021-08-10] MEDS: EPOETIN ALFA 10,000 UNITS/ML 2 ML VIAL SQ SCH (08:39)
[2021-08-10] MEDS: DOCUSATE SODIUM 100 MG CAPSULE PO SCH ×2 (09:57→21:02)
[2021-08-10] MEDS: INSULIN LISPRO 100 UNITS/ML SQ PRN ×3 (12:33→21:25)
[2021-08-10] MEDS: SOD FERRIC GLUC COMPLX/SUCROSE 125 MG in SODIUM CHLORIDE 0.9% 100 ML IV SCH ×2 (12:34→16:23)
[2021-08-10 16:30] VITALS: BP 126/61
[2021-08-10 18:11] LABS: GLUCOMETER DEV NAME(LOC) 2WR.2B; GLUCOSE,POINT OF CARE 287 MG/DL (70-110)
[2021-08-10] MEDS: ACETAMINOPHEN 325 MG TABLET PO PRN (18:35)
[2021-08-10 20:58] VITALS: BP 131/67
[2021-08-10] MEDS: ATORVASTATIN CALCIUM 40 MG TABLET PO SCH (21:01)
[2021-08-10] MEDS: SENNA 187 MG TABLET PO SCH ×2 (21:02→21:12)
[2021-08-10] MEDS: INSULIN GLARGINE,HUM.REC.ANLOG 100 UNITS/ML SQ SCH (21:26)
[2021-08-10 21:46] LABS: GLUCOMETER DEV NAME(LOC) 2WR.2B; GLUCOSE,POINT OF CARE 360 MG/DL (70-110)
[2021-08-11] MEDS: 0.9% SODIUM CHLORIDE 10 ML SYRINGE IVP SCH ×4 (00:06→23:42)
[2021-08-11] MEDS: NYSTATIN 500,000 UNITS/5 ML SUSPENSION UDCUP PO SCH ×4 (00:06→23:33)
[2021-08-11 01:00] VITALS: BP 144/57
[2021-08-11 06:01] LABS: GLUCOMETER DEV NAME(LOC) 2WR.2B; GLUCOSE,POINT OF CARE 162 MG/DL (70-110)
[2021-08-11] MEDS: PANTOPRAZOLE SODIUM 40 MG DR TABLET PO SCH (06:12)
[2021-08-11 08:01] VITALS: BP 132/67
[2021-08-11] MEDS: ETHYL ALCOHOL 62% ANTISEPTIC NASAL SANITIZER 0.6 ML AMPUL NASAL SCH ×2 (08:23→20:58)
[2021-08-11] MEDS: ASPIRIN 81 MG CHEWABLE TABLET PO SCH (08:24)
[2021-08-11] MEDS: CARVEDILOL 25 MG TABLET PO SCH ×2 (08:25→20:59)
[2021-08-11] MEDS: AmLODIPine BESYLATE 5 MG TABLET PO SCH (08:25)
[2021-08-11] MEDS: DOCUSATE SODIUM 100 MG CAPSULE PO SCH ×2 (08:25→20:59)
[2021-08-11] MEDS: LACTOBAC ACID/BULG/BIFID/THERM TABLET PO SCH ×2 (08:25→20:59)
[2021-08-11] MEDS: VITAMIN B COMP/VIT C/FOLIC ACID CAPSULE PO SCH (08:25)
[2021-08-11] MEDS: CLOPIDOGREL BISULFATE 75 MG TABLET PO SCH (08:26)
[2021-08-11] MEDS: ACETAMINOPHEN 325 MG TABLET PO PRN ×2 (08:41→18:03)
[2021-08-11] MEDS: INSULIN LISPRO 100 UNITS/ML SQ PRN ×3 (09:23→21:17)
[2021-08-11 12:52] LABS: GLUCOMETER DEV NAME(LOC) 2WR.2B; GLUCOSE,POINT OF CARE 249 MG/DL (70-110)
[2021-08-11] MEDS: SOD FERRIC GLUC COMPLX/SUCROSE 125 MG in SODIUM CHLORIDE 0.9% 100 ML IV SCH (15:44)
[2021-08-11] MEDS ORDERED: SODIUM CHLORIDE 0.9% 250 ML IV ONE (15:52)
[2021-08-11 16:35] VITALS: BP 131/62
[2021-08-11 17:21] LABS: GLUCOMETER DEV NAME(LOC) 2WR.2B; GLUCOSE,POINT OF CARE 140 MG/DL (70-110)
[2021-08-11] MEDS: ATORVASTATIN CALCIUM 40 MG TABLET PO SCH (20:59)
[2021-08-11 21:00] VITALS: BP 136/68
[2021-08-11] MEDS: INSULIN GLARGINE,HUM.REC.ANLOG 100 UNITS/ML SQ SCH (21:17)
[2021-08-11 21:36] LABS: GLUCOMETER DEV NAME(LOC) 2WR.2B; GLUCOSE,POINT OF CARE 165 MG/DL (70-110)
[2021-08-12] VITALS: BP 132/56
[2021-08-12] MEDS: PANTOPRAZOLE SODIUM 40 MG DR TABLET PO SCH (05:36)
[2021-08-12 06:20] LABS: BASOPHILS % (AUTO) 1.5 % (0.0-2.0); EOSINOPHILS % (AUTO) 6.1 % (1.0-6.0); HEMATOCRIT 21.2 % (41-53); HEMOGLOBIN 7.1 g/dL (13.5-17.5); LYMPHOCYTES # (AUTO) 1.9 K/uL (1.0-4.8); LYMPHOCYTES % (AUTO) 19.5 % (22.0-44.0); MEAN CORPUSCULAR HEMOGLOBIN 30.4 pg (26.0-34.0); MEAN CORPUSCULAR HGB CONC 33.6 G/dL (31.0-37.0); MEAN CORPUSCULAR VOLUME 90 fL (80-100); MONOCYTES % (AUTO) 10.3 % (2.0-9.0); NEUTROPHILS # (AUTO) 6.2 K/uL (1.8-7.7); NEUTROPHILS % (AUTO) 62.6 % (40.0-70.0); PLATELET COUNT (AUTO) 371 K/uL (150-450); RED BLOOD CELL COUNT(AUTO) 2.34 MIL/uL (4.50-5.90); RED CELL DISTRIBUTION WIDTH 17.3 % (11.5-14.5)
[2021-08-12 06:41] LABS: GLUCOMETER DEV NAME(LOC) 2WR.2B; GLUCOSE,POINT OF CARE 81 MG/DL (70-110)
[2021-08-12 06:51] LABS: CREATININE 2.64 mg/dL (0.60-1.30); PHOSPHORUS 4.5 mg/dL (2.5-4.9); POTASSIUM 4.2 mmol/L (3.5-5.1)
[2021-08-12 06:56] LABS: GLUCOMETER DEV NAME(LOC) 2WR.1C; GLUCOSE,POINT OF CARE 42 MG/DL (70-110)
[2021-08-12 08:51] VITALS: BP 130/56
[2021-08-12] MEDS: DOCUSATE SODIUM 100 MG CAPSULE PO SCH ×2 (09:00→20:36)
[2021-08-12] MEDS: ETHYL ALCOHOL 62% ANTISEPTIC NASAL SANITIZER 0.6 ML AMPUL NASAL SCH ×2 (09:15→20:36)
[2021-08-12] MEDS: 0.9% SODIUM CHLORIDE 10 ML SYRINGE IVP SCH ×3 (09:15→23:50)
[2021-08-12] MEDS: VITAMIN B COMP/VIT C/FOLIC ACID CAPSULE PO SCH (09:15)
[2021-08-12] MEDS: LACTOBAC ACID/BULG/BIFID/THERM TABLET PO SCH ×2 (09:15→20:36)
[2021-08-12] MEDS: AmLODIPine BESYLATE 2.5 MG TABLET PO SCH (09:16)
[2021-08-12] MEDS: CLOPIDOGREL BISULFATE 75 MG TABLET PO SCH (09:16)
[2021-08-12] MEDS: CARVEDILOL 25 MG TABLET PO SCH ×2 (09:16→20:36)
[2021-08-12] MEDS: ASPIRIN 81 MG CHEWABLE TABLET PO SCH (09:16)
[2021-08-12] MEDS: EPOETIN ALFA 10,000 UNITS/ML 2 ML VIAL SQ SCH (09:19)
[2021-08-12] MEDS: INSULIN LISPRO 100 UNITS/ML SQ PRN ×3 (12:42→20:49)
[2021-08-12] MEDS: SOD FERRIC GLUC COMPLX/SUCROSE 125 MG in SODIUM CHLORIDE 0.9% 100 ML IV SCH (15:59)
[2021-08-12 16:35] VITALS: BP 124/68
[2021-08-12 20:32] VITALS: BP 132/61
[2021-08-12] MEDS: ATORVASTATIN CALCIUM 40 MG TABLET PO SCH (20:36)
[2021-08-12] MEDS: SENNA 187 MG TABLET PO SCH (20:37)
[2021-08-12] MEDS: INSULIN GLARGINE,HUM.REC.ANLOG 100 UNITS/ML SQ SCH (20:50)
[2021-08-13] VITALS: BP 137/71
[2021-08-13] MEDS: PANTOPRAZOLE SODIUM 40 MG DR TABLET PO SCH (06:21)
[2021-08-13 07:44] LABS: CALCIUM, TOTAL 7.5 mg/dL (8.8-10.5); CREATININE 2.66 mg/dL (0.60-1.30); PHOSPHORUS 4.6 mg/dL (2.5-4.9); POTASSIUM 4.6 mmol/L (3.5-5.1)
[2021-08-13] MEDS: 0.9% SODIUM CHLORIDE 10 ML SYRINGE IVP SCH ×3 (08:34→23:37)
[2021-08-13] MEDS: CLOPIDOGREL BISULFATE 75 MG TABLET PO SCH (08:35)
[2021-08-13] MEDS: VITAMIN B COMP/VIT C/FOLIC ACID CAPSULE PO SCH (08:35)
[2021-08-13] MEDS: LACTOBAC ACID/BULG/BIFID/THERM TABLET PO SCH ×2 (08:35→20:42)
[2021-08-13] MEDS: CARVEDILOL 25 MG TABLET PO SCH ×2 (08:35→20:42)
[2021-08-13] MEDS: ETHYL ALCOHOL 62% ANTISEPTIC NASAL SANITIZER 0.6 ML AMPUL NASAL SCH ×2 (08:35→20:47)
[2021-08-13] MEDS: AmLODIPine BESYLATE 2.5 MG TABLET PO SCH (08:35)
[2021-08-13] MEDS: ASPIRIN 81 MG CHEWABLE TABLET PO SCH (08:35)
[2021-08-13] MEDS: DOCUSATE SODIUM 100 MG CAPSULE PO SCH ×2 (08:36→20:47)
[2021-08-13] MEDS: INSULIN LISPRO 100 UNITS/ML SQ PRN ×4 (08:37→20:39)
[2021-08-13 09:20] VITALS: BP 128/59
[2021-08-13] MEDS: SOD FERRIC GLUC COMPLX/SUCROSE 125 MG in SODIUM CHLORIDE 0.9% 100 ML IV SCH (16:06)
[2021-08-13 16:18] LABS: GLUCOMETER DEV NAME(LOC) 2WR.2B; GLUCOSE,POINT OF CARE 298 MG/DL (70-110)
[2021-08-13 16:32] LABS: GLUCOMETER DEV NAME(LOC) 2WR.1C; GLUCOSE,POINT OF CARE 277 MG/DL (70-110)
[2021-08-13 16:32] LABS: GLUCOMETER DEV NAME(LOC) 2WR.1C; GLUCOSE,POINT OF CARE 198 MG/DL (70-110)
[2021-08-13 16:38] LABS: GLUCOMETER DEV NAME(LOC) 2WR.2B; GLUCOSE,POINT OF CARE 265 MG/DL (70-110)
[2021-08-13 16:38] LABS: GLUCOMETER DEV NAME(LOC) 2WR.2B; GLUCOSE,POINT OF CARE 306 MG/DL (70-110)
[2021-08-13 16:39] LABS: GLUCOMETER DEV NAME(LOC) 2WR.1C; GLUCOSE,POINT OF CARE 198 MG/DL (70-110)
[2021-08-13 16:39] LABS: GLUCOMETER DEV NAME(LOC) 2WR.1C; GLUCOSE,POINT OF CARE 277 MG/DL (70-110)
[2021-08-13 17:52] VITALS: BP 144/72
[2021-08-13] MEDS: ACETAMINOPHEN 325 MG TABLET PO PRN ×2 (19:19→23:42)
[2021-08-13 20:36] LABS: GLUCOMETER DEV NAME(LOC) 2WR.1C; GLUCOSE,POINT OF CARE 278 MG/DL (70-110)
[2021-08-13] MEDS: INSULIN GLARGINE,HUM.REC.ANLOG 100 UNITS/ML SQ SCH (20:39)
[2021-08-13] MEDS: ATORVASTATIN CALCIUM 40 MG TABLET PO SCH (20:42)
[2021-08-13] MEDS: SENNA 187 MG TABLET PO SCH (20:47)
[2021-08-13 21:31] LABS: GLUCOMETER DEV NAME(LOC) 2WR.2B; GLUCOSE,POINT OF CARE 245 MG/DL (70-110)
[2021-08-13 23:42] VITALS: BP 130/60
[2021-08-14] MEDS: PANTOPRAZOLE SODIUM 40 MG DR TABLET PO SCH (06:04)
[2021-08-14 06:41] LABS: GLUCOMETER DEV NAME(LOC) 2WR.1C; GLUCOSE,POINT OF CARE 163 MG/DL (70-110)
[2021-08-14 07:05] VITALS: BP 147/58
[2021-08-14] MEDS: EPOETIN ALFA 10,000 UNITS/ML 2 ML VIAL SQ SCH (08:25)
[2021-08-14] MEDS: ETHYL ALCOHOL 62% ANTISEPTIC NASAL SANITIZER 0.6 ML AMPUL NASAL SCH ×3 (08:25→21:00)
[2021-08-14] MEDS: VITAMIN B COMP/VIT C/FOLIC ACID CAPSULE PO SCH (08:25)
[2021-08-14] MEDS: ASPIRIN 81 MG CHEWABLE TABLET PO SCH (08:26)
[2021-08-14] MEDS: LACTOBAC ACID/BULG/BIFID/THERM TABLET PO SCH (08:26)
[2021-08-14] MEDS: CLOPIDOGREL BISULFATE 75 MG TABLET PO SCH (08:26)
[2021-08-14] MEDS: CARVEDILOL 25 MG TABLET PO SCH ×2 (08:26→21:17)
[2021-08-14] MEDS: AmLODIPine BESYLATE 2.5 MG TABLET PO SCH (08:26)
[2021-08-14] MEDS: DOCUSATE SODIUM 100 MG CAPSULE PO SCH ×2 (08:27→21:00)
[2021-08-14] MEDS: 0.9% SODIUM CHLORIDE 10 ML SYRINGE IVP SCH ×2 (08:27→17:19)
[2021-08-14] MEDS: INSULIN LISPRO 100 UNITS/ML SQ PRN ×3 (08:30→21:09)
[2021-08-14] MEDS ORDERED: BACLOFEN 10 MG TABLET PO SCH (10:00)
[2021-08-14 12:47] LABS: GLUCOMETER DEV NAME(LOC) 2WR.2B; GLUCOSE,POINT OF CARE 153 MG/DL (70-110)
[2021-08-14] MEDS: ACETAMINOPHEN 325 MG TABLET PO PRN ×2 (13:37→19:00)
[2021-08-14 17:56] VITALS: BP 141/56
[2021-08-14] MEDS: MELATONIN 3 MG TABLET PO PRN (19:00)
[2021-08-14 20:26] LABS: GLUCOMETER DEV NAME(LOC) 2WR.2B; GLUCOSE,POINT OF CARE 109 MG/DL (70-110)
[2021-08-14] MEDS: SENNA 187 MG TABLET PO SCH (21:00)
[2021-08-14] MEDS: INSULIN GLARGINE,HUM.REC.ANLOG 100 UNITS/ML SQ SCH (21:00)
[2021-08-14] MEDS: ATORVASTATIN CALCIUM 40 MG TABLET PO SCH (21:20)
[2021-08-14 22:11] LABS: GLUCOMETER DEV NAME(LOC) 2WR.2B; GLUCOSE,POINT OF CARE 263 MG/DL (70-110)
[2021-08-15] MEDS: INSULIN GLARGINE,HUM.REC.ANLOG 100 UNITS/ML SQ SCH ×2 (00:05→21:08)
[2021-08-15] MEDS: 0.9% SODIUM CHLORIDE 10 ML SYRINGE IVP SCH ×4 (00:14→23:26)
[2021-08-15 01:53] VITALS: BP 143/58
[2021-08-15] MEDS: PANTOPRAZOLE SODIUM 40 MG DR TABLET PO SCH (06:07)
[2021-08-15 06:42] LABS: GLUCOMETER DEV NAME(LOC) 2WR.2B; GLUCOSE,POINT OF CARE 232 MG/DL (70-110)
[2021-08-15 07:09] LABS: BASOPHILS % (AUTO) 0.7 % (0.0-2.0); EOSINOPHILS % (AUTO) 0.5 % (1.0-6.0); LYMPHOCYTES # (AUTO) 1.2 K/uL (1.0-4.8); LYMPHOCYTES % (AUTO) 10.3 % (22.0-44.0); MEAN CORPUSCULAR HEMOGLOBIN 30.6 pg (26.0-34.0); MEAN CORPUSCULAR HGB CONC 33.1 G/dL (31.0-37.0); MEAN CORPUSCULAR VOLUME 92 fL (80-100); MONOCYTES # (AUTO) 1.5 K/uL (0.1-1.0); MONOCYTES % (AUTO) 12.8 % (2.0-9.0); NEUTROPHILS # (AUTO) 8.8 K/uL (1.8-7.7); NEUTROPHILS % (AUTO) 75.7 % (40.0-70.0); PLATELET COUNT (AUTO) 310 K/uL (150-450); RED BLOOD CELL COUNT(AUTO) 2.28 MIL/uL (4.50-5.90)
[2021-08-15] MEDS: CARVEDILOL 25 MG TABLET PO SCH ×2 (08:12→20:59)
[2021-08-15] MEDS: DOCUSATE SODIUM 100 MG CAPSULE PO SCH ×2 (08:12→20:56)
[2021-08-15] MEDS: ASPIRIN 81 MG CHEWABLE TABLET PO SCH (08:12)
[2021-08-15] MEDS: ETHYL ALCOHOL 62% ANTISEPTIC NASAL SANITIZER 0.6 ML AMPUL NASAL SCH ×2 (08:12→20:56)
[2021-08-15] MEDS: CLOPIDOGREL BISULFATE 75 MG TABLET PO SCH (08:13)
[2021-08-15] MEDS: VITAMIN B COMP/VIT C/FOLIC ACID CAPSULE PO SCH (08:13)
[2021-08-15] MEDS: INSULIN LISPRO 100 UNITS/ML SQ PRN ×4 (08:15→21:10)
[2021-08-15 08:37] VITALS: BP 144/54
[2021-08-15] MEDS: ACETAMINOPHEN 325 MG TABLET PO PRN ×2 (11:56→18:58)
[2021-08-15] MEDS: FUROSEMIDE 20 MG TABLET PO SCH (12:49)
[2021-08-15 14:56] LABS: GLUCOMETER DEV NAME(LOC) 2WR.2B; GLUCOSE,POINT OF CARE 203 MG/DL (70-110)
[2021-08-15 16:15] VITALS: BP 150/62
[2021-08-15] MEDS: SENNA 187 MG TABLET PO SCH (20:56)
[2021-08-15] MEDS: ATORVASTATIN CALCIUM 40 MG TABLET PO SCH (20:59)
[2021-08-15 21:11] LABS: GLUCOMETER DEV NAME(LOC) 2WR.2B; GLUCOSE,POINT OF CARE 257 MG/DL (70-110)
[2021-08-15 21:56] LABS: GLUCOMETER DEV NAME(LOC) 2WR.2B; GLUCOSE,POINT OF CARE 286 MG/DL (70-110)
[2021-08-16] VITALS: BP 154/60
[2021-08-16] MEDS ORDERED: FURO20 PO (04:26)
[2021-08-16] MEDS ORDERED: SENN8.8S18 PO (04:32)
[2021-08-16] MEDS: PANTOPRAZOLE SODIUM 40 MG DR TABLET PO SCH (05:46)
[2021-08-16 06:16] LABS: GLUCOMETER DEV NAME(LOC) 2WR.2B; GLUCOSE,POINT OF CARE 174 MG/DL (70-110)
[2021-08-16 07:40] VITALS: BP 132/59
[2021-08-16] MEDS: INSULIN LISPRO 100 UNITS/ML SQ PRN ×4 (08:06→20:38)
[2021-08-16] MEDS: ETHYL ALCOHOL 62% ANTISEPTIC NASAL SANITIZER 0.6 ML AMPUL NASAL SCH ×2 (08:40→20:39)
[2021-08-16] MEDS: 0.9% SODIUM CHLORIDE 10 ML SYRINGE IVP SCH ×2 (08:40→16:20)
[2021-08-16] MEDS: CARVEDILOL 25 MG TABLET PO SCH ×2 (08:41→20:39)
[2021-08-16] MEDS: ASPIRIN 81 MG CHEWABLE TABLET PO SCH (08:41)
[2021-08-16] MEDS: DOCUSATE SODIUM 100 MG CAPSULE PO SCH ×2 (08:41→20:40)
[2021-08-16] MEDS: FUROSEMIDE 20 MG TABLET PO SCH (08:41)
[2021-08-16] MEDS: VITAMIN B COMP/VIT C/FOLIC ACID CAPSULE PO SCH (08:42)
[2021-08-16 08:43] LABS: BASOPHILS % (AUTO) 0.8 % (0.0-2.0); EOSINOPHILS % (AUTO) 1.7 % (1.0-6.0); HEMATOCRIT 21.1 % (41-53); HEMOGLOBIN 7.1 g/dL (13.5-17.5); LYMPHOCYTES % (AUTO) 10.5 % (22.0-44.0); MEAN CORPUSCULAR HEMOGLOBIN 30.7 pg (26.0-34.0); MEAN CORPUSCULAR HGB CONC 33.4 G/dL (31.0-37.0); MEAN CORPUSCULAR VOLUME 92 fL (80-100); NEUTROPHILS # (AUTO) 7.5 K/uL (1.8-7.7); PLATELET COUNT (AUTO) 313 K/uL (150-450); RED CELL DISTRIBUTION WIDTH 20.2 % (11.5-14.5)
[2021-08-16] MEDS: CLOPIDOGREL BISULFATE 75 MG TABLET PO SCH (08:43)
[2021-08-16 08:53] LABS: CALCIUM, TOTAL 7.6 mg/dL (8.8-10.5); CREATININE 2.93 mg/dL (0.60-1.30); POTASSIUM 5.1 mmol/L (3.5-5.1)
[2021-08-16] MEDS ORDERED: SENN-277 PO (12:29)
[2021-08-16] MEDS: ACETAMINOPHEN 325 MG TABLET PO PRN ×2 (13:45→18:21)
[2021-08-16 16:23] VITALS: BP 139/51
[2021-08-16 17:21] LABS: GLUCOMETER DEV NAME(LOC) 2WR.2B; GLUCOSE,POINT OF CARE 284 MG/DL (70-110)
[2021-08-16 18:06] LABS: GLUCOMETER DEV NAME(LOC) 2WR.1C; GLUCOSE,POINT OF CARE 267 MG/DL (70-110)
[2021-08-16] MEDS: INSULIN GLARGINE,HUM.REC.ANLOG 100 UNITS/ML SQ SCH (20:37)
[2021-08-16] MEDS: ATORVASTATIN CALCIUM 40 MG TABLET PO SCH (20:39)
[2021-08-16] MEDS: SENNA 187 MG TABLET PO SCH (20:40)
[2021-08-16 21:31] LABS: GLUCOMETER DEV NAME(LOC) 2WR.2B; GLUCOSE,POINT OF CARE 238 MG/DL (70-110)
[2021-08-17 00:08] VITALS: BP 144/64
[2021-08-17] MEDS: 0.9% SODIUM CHLORIDE 10 ML SYRINGE IVP SCH ×2 (00:19→08:33)
[2021-08-17 06:01] LABS: GLUCOMETER DEV NAME(LOC) 2WR.2B; GLUCOSE,POINT OF CARE 107 MG/DL (70-110)
[2021-08-17] MEDS: PANTOPRAZOLE SODIUM 40 MG DR TABLET PO SCH (06:21)
[2021-08-17] MEDS: CARVEDILOL 25 MG TABLET PO SCH ×2 (08:32→20:21)
[2021-08-17] MEDS: EPOETIN ALFA 10,000 UNITS/ML 2 ML VIAL SQ SCH (08:32)
[2021-08-17] MEDS: CLOPIDOGREL BISULFATE 75 MG TABLET PO SCH (08:32)
[2021-08-17] MEDS: VITAMIN B COMP/VIT C/FOLIC ACID CAPSULE PO SCH (08:32)
[2021-08-17] MEDS: DOCUSATE SODIUM 100 MG CAPSULE PO SCH ×2 (08:33→20:22)
[2021-08-17] MEDS: ETHYL ALCOHOL 62% ANTISEPTIC NASAL SANITIZER 0.6 ML AMPUL NASAL SCH ×2 (08:33→20:21)
[2021-08-17] MEDS: ASPIRIN 81 MG CHEWABLE TABLET PO SCH (08:33)
[2021-08-17 08:50] VITALS: BP 125/65
[2021-08-17 12:37] LABS: GLUCOMETER DEV NAME(LOC) 2WR.1C; GLUCOSE,POINT OF CARE 277 MG/DL (70-110)
[2021-08-17] MEDS: INSULIN LISPRO 100 UNITS/ML SQ PRN ×3 (12:44→20:41)
[2021-08-17 16:14] VITALS: BP 134/64
[2021-08-17 17:46] LABS: GLUCOMETER DEV NAME(LOC) 2WR.2B; GLUCOSE,POINT OF CARE 202 MG/DL (70-110)
[2021-08-17] MEDS: ACETAMINOPHEN 325 MG TABLET PO PRN (18:23)
[2021-08-17 20:20] VITALS: BP 136/66
[2021-08-17] MEDS: ATORVASTATIN CALCIUM 40 MG TABLET PO SCH (20:21)
[2021-08-17] MEDS: SENNA 187 MG TABLET PO SCH (20:22)
[2021-08-17] MEDS: INSULIN GLARGINE,HUM.REC.ANLOG 100 UNITS/ML SQ SCH (20:41)
[2021-08-17 21:01] LABS: GLUCOMETER DEV NAME(LOC) 2WR.1C; GLUCOSE,POINT OF CARE 167 MG/DL (70-110)
[2021-08-18 00:43] VITALS: BP 142/67
[2021-08-18 06:06] LABS: GLUCOMETER DEV NAME(LOC) 2WR.2B; GLUCOSE,POINT OF CARE 204 MG/DL (70-110)
[2021-08-18] MEDS: PANTOPRAZOLE SODIUM 40 MG DR TABLET PO SCH (06:08)
[2021-08-18 07:34] LABS: BASOPHILS % (AUTO) 0.8 % (0.0-2.0); EOSINOPHILS % (AUTO) 3.8 % (1.0-6.0); HEMATOCRIT 21.4 % (41-53); HEMOGLOBIN 7.2 g/dL (13.5-17.5); LYMPHOCYTES # (AUTO) 0.9 K/uL (1.0-4.8); LYMPHOCYTES % (AUTO) 13.8 % (22.0-44.0); MEAN CORPUSCULAR HEMOGLOBIN 30.7 pg (26.0-34.0); MEAN CORPUSCULAR HGB CONC 33.7 G/dL (31.0-37.0); MEAN CORPUSCULAR VOLUME 91 fL (80-100); MONOCYTES # (AUTO) 0.5 K/uL (0.1-1.0); MONOCYTES % (AUTO) 7.7 % (2.0-9.0); NEUTROPHILS # (AUTO) 5.1 K/uL (1.8-7.7); NEUTROPHILS % (AUTO) 73.9 % (40.0-70.0); PLATELET COUNT (AUTO) 337 K/uL (150-450); RED BLOOD CELL COUNT(AUTO) 2.35 MIL/uL (4.50-5.90); RED CELL DISTRIBUTION WIDTH 18.9 % (11.5-14.5)
[2021-08-18] MEDS: ETHYL ALCOHOL 62% ANTISEPTIC NASAL SANITIZER 0.6 ML AMPUL NASAL SCH (08:15)
[2021-08-18] MEDS: DOCUSATE SODIUM 100 MG CAPSULE PO SCH (08:16)
[2021-08-18] MEDS: CARVEDILOL 25 MG TABLET PO SCH (08:16)
[2021-08-18] MEDS: CLOPIDOGREL BISULFATE 75 MG TABLET PO SCH (08:16)
[2021-08-18] MEDS: VITAMIN B COMP/VIT C/FOLIC ACID CAPSULE PO SCH (08:16)
[2021-08-18] MEDS: ASPIRIN 81 MG CHEWABLE TABLET PO SCH (08:16)
[2021-08-18] MEDS: INSULIN LISPRO 100 UNITS/ML SQ PRN (08:17)
[2021-08-18 08:18] LABS: CREATININE 2.86 mg/dL (0.60-1.30); POTASSIUM 4.8 mmol/L (3.5-5.1)
[2021-08-18 08:52] VITALS: BP 146/68
[2021-08-18] MEDS ORDERED: DOCU-385 PO (08:58)
[2021-08-18] MEDS ORDERED: ATOR40TA71 PO (08:58)
[2021-08-18] MEDS ORDERED: CARV25 PO (08:58)
[2021-08-18] MEDS ORDERED: ASPI81 PO (08:58)
[2021-08-18] MEDS ORDERED: CLOP75TA60 PO (08:58)
[2021-08-18] MEDS ORDERED: SENN-187 PO (08:58)
[2021-08-18] MEDS ORDERED: INSU100V SQ (08:58)
[2021-08-18] MEDS ORDERED: INSLAN SQ (08:58)
[2021-08-18] MEDS ORDERED: B CO1CAP6 PO (08:58)
[2021-08-18] MEDS ORDERED: PANT-31 PO (08:58)
== END 2021-08-18 11:20 | disposition home or self-care (01) | DRG 56 ==
LOC: 2WR 07-27 17:05
PROVIDERS: ADMIT Physical Medicine & Rehabilitation; ATTEND Physical Medicine & Rehabilitation
DX: G81.94 Hemiplegia, unspecified affecting left nondominant side (principal); I63.9 Cerebral infarction, unspecified; I13.0 Hypertensive heart and chronic kidney disease with heart failure and stage 1 through stage 4 chronic kidney disease, or unspecified chronic kidney disease; I42.1 Obstructive hypertrophic cardiomyopathy; I50.32 Chronic diastolic (congestive) heart failure; L03.311 Cellulitis of abdominal wall; N18.4 Chronic kidney disease, stage 4 (severe); E44.0 Moderate protein-calorie malnutrition; B37.0 Candidal stomatitis; D63.1 Anemia in chronic kidney disease; E11.22 Type 2 diabetes mellitus with diabetic chronic kidney disease; E11.649 Type 2 diabetes mellitus with hypoglycemia without coma; I25.10 Atherosclerotic heart disease of native coronary artery without angina pectoris; R13.10 Dysphagia, unspecified; R32 Unspecified urinary incontinence; E11.40 Type 2 diabetes mellitus with diabetic neuropathy, unspecified; E11.51 Type 2 diabetes mellitus with diabetic peripheral angiopathy without gangrene; D50.9 Iron deficiency anemia, unspecified; Z79.4 Long term (current) use of insulin; Z79.899 Other long term (current) drug therapy; Z82.49 Family history of ischemic heart disease and other diseases of the circulatory system; Z83.3 Family history of diabetes mellitus; Z87.19 Personal history of other diseases of the digestive system; Z93.1 Gastrostomy status; Z79.82 Long term (current) use of aspirin
CPT/HCPCS: 71045; 74230; 76770; 80048; 80053; 80061; 81001; 81002; 81050; 82271; 82575; 82784; 82962; 83036; 83540; 83550; 83735; 83970; 84100; 84156; 84166; 85025; 86160; 86334; 86850; 86900; 86901; 86923; 87070; 87081; 87205; 92507; 92523; 92526; 92611; 93925; 93970; 93971; 97110; 97112; 97116; 97140; 97163; 97167; 97530; 97535; 99366; J0885; J1815; J2916; J7040; J7050; 36415-L1; 36415-TC